=== PATIENT | male | born 1965 | race Caucasian/White ===

== ENCOUNTER 2018-07-02 14:57 | Emergency (ER) | payer OTHER ==
[~2018-07-02] VITALS: Ht 177.8 cm; Wt 113.4 kg
[2018-07-02 15:02] VITALS: BP 126/70
[2018-07-02] MEDS ORDERED: KETOROLAC 60 MG/2 ML INJ. IM ONE (15:30)
[2018-07-02] MEDS ORDERED: ORPHENADRINE CITRATE 60 MG/2 ML VIAL. IM ONE (15:30)
--- NOTE | 2018-07-02 16:14 | RAD ---
Examination: 3 views of the right shoulder and 2 views of the lumbar spine HISTORY: History of right shoulder pain after fall, low back pain COMPARISON: None available Findings: The humerus head is within the glenoid. There is no acute fracture or dislocation identified. Prior surgical changes of the rotator cuff The lumbar vertebral body heights are maintained. No evidence of listhesis. Mild degenerative changes identified in the lower thoracic spine. IMPRESSION: 1. No acute osseous findings. Electronically signed by: Homar Quezada MD (07/02/2018 4:10 PM) [place] [id number]
[2018-07-02] MEDS ORDERED: ORPH100T PO (16:51)
--- NOTE | 2018-07-02 16:52 | PHYS DOC ---
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 Pt denies any LOC, head injury, nausea, vomiting, neck pain, saddle anesthesia, or loss of bowel/bladder control. Pt states he was unloading the trailer when it began to move which threw his balance off and he jumped out the back of it. He denies any numbness, tingling, or weakness of his extremities. Review of Systems Review of Systems Constitutional: Denies fever or chills [] Eyes: Denies change in visual acuity, redness, or eye pain [] GI: Denies abdominal pain, nausea, vomiting, or saddle anesthesia Musculoskeletal: reports low back and R shoulder pain Integument: Denies rash or skin lesions [] Neurologic: Denies headache, focal weakness or sensory changes [] All other systems were reviewed and found to be within normal limits, except as documented in this note. Current Medications Current Medications Current Medications Medications (Trade) Dose Ordered Sig/[facility] Start Time Stop Time Status Last Admin Dose Admin Ketorolac Tromethamine (Toradol Im) 30 mg 1X ONCE 07/02/18 15:30 07/02/18 15:31 DC 07/02/18 15:43 30 MG Orphenadrine Citrate (Norflex) 60 mg 1X ONCE 07/02/18 15:30 07/02/18 15:31 DC 07/02/18 15:44 60 MG Allergies Allergies Allergies Coded Allergies Type Severity Reaction Last Updated Verified No Known Drug Allergies 07/02/18 No Physical Exam Physical Exam Constitutional: Well developed, well nourished, no acute distress, non-toxic appearance. [] HENT: Normocephalic, atraumatic, bilateral external ears normal, nose normal. [] Eyes: PERRLA, conjunctiva normal, no discharge. [] Neck: Normal range of motion, no tenderness, supple, no stridor. [] Lungs & Thorax: Bilateral breath sounds clear to auscultation [] Skin: Warm, dry, no erythema, no rash. [] Back: no bony tenderness, right supraspinatus lumbar muscular tenderness Extremities: No cyanosis, no clubbing, no edema, R lateral clavicle tenderness, R shoulder tenderness, limited ROM of L shoulder. ] Neurologic: Alert and oriented X 3, normal motor function, normal sensory function, no focal deficits noted. [] Psychologic: Affect normal, judgement normal, mood normal. [] Current Patient Data Vital Signs Vital Signs Date Time Temp Pulse Resp B/P (MAP) Pulse Ox O2 Delivery O2 Flow Rate FiO2 07/02/18 15:02 99.1 72 20 126/70 (88) 98 Room Air 99.1 EKG EKG [] Radiology/Procedures Radiology/Procedures PROCEDURE: LUMBAR SPINE 2-3V Examination: 3 views of the right shoulder and 2 views of the lumbar spine HISTORY: History of right shoulder pain after fall, low back pain COMPARISON: None available Findings: The humerus head is within the glenoid. There is no acute fracture or dislocation identified. Prior surgical changes of the rotator cuff The lumbar vertebral body heights are maintained. No evidence of listhesis. Mild degenerative changes identified in the lower thoracic spine. IMPRESSION: 1. No acute osseous findings. Course & Med Decision Making Course & Med Decision Making Pertinent Labs and Imaging studies reviewed. (See chart for details) Dx: low back pain, R shoulder pain, fall Xrays of R shoulder and lumbar spine are negative for any acute bony abnormalities. PT was given 60 mg norflex and 30 mg toradol in the ER, reports relief of pain after medications. Instructed pt to Apply ice to sore areas every 1-2 hours as needed for the next 48 hours, take Mobic as previously prescribed at home. Fill prescription for Norflex and take as directed. Follow up with your orthopedic Doctor or Dr. Tracy for further evaluation if symptoms persist. Return to the ER if symptoms worsen. Patient's and Patient verbalized an understanding of home care, medications, follow-up, and return to ED instructions and was in agreement with the plan of care. [] Dragon Disclaimer Dragon Disclaimer This electronic medical record was generated, in whole or in part, using a voice recognition dictation system. Departure Departure Impression: Primary Impression: Low back pain Additional Impressions: Right shoulder pain Fall Disposition: 01 HOME, SELF-CARE Condition: STABLE Referrals: SANDY BASSETT MD (PCP) ANGELIC TRACY II, MD Patient Instructions: Back Pain, Adult, [id number], Shoulder Pain, Easy-to- Read Additional Instructions: Take Mobic as previously prescribed at home. Fill prescription for Norflex and take as directed. Follow up with your orthopedic Doctor or Dr. Tracy for further evaluation if symptoms persist. Return to the ER if symptoms worsen. Scripts Orphenadrine Citrate (ORPHENADRINE CITRATE) 100 Mg Tablet.er 1 TAB PO BID for 10 Days, #20 TAB 0 Refills Prov: BRIGIDA PRIEST BRIDGE OPERATOR 07/02/18 Problem Qualifiers Primary Impression: Low back pain Chronicity: acute Back pain laterality: right Sciatica presence: without sciatica Qualified Codes: M54.5 - Low back pain Additional Impressions: Right shoulder pain Chronicity: acute Qualified Codes: M25.511 - Pain in right shoulder Fall Encounter type: initial encounter Qualified Codes: W19.XXXA - Unspecified fall, initial encounter BRIGIDA PRIEST BRIDGE OPERATOR Jul 02, 2018 16:52
== END 2018-07-02 16:59 | disposition home or self-care (01) ==
LOC: ER 14:57
DX: M54.5 Low back pain (principal); M25.511 Pain in right shoulder; G89.11 Acute pain due to trauma; I10 Essential (primary) hypertension; I25.10 Atherosclerotic heart disease of native coronary artery without angina pectoris; I25.2 Old myocardial infarction; F43.10 Post-traumatic stress disorder, unspecified; Z95.5 Presence of coronary angioplasty implant and graft; W17.89XA Other fall from one level to another, initial encounter; Y93.89 Activity, other specified; Y92.69 Other specified industrial and construction area as the place of occurrence of the external cause; Y99.0 Civilian activity done for income or pay
CPT/HCPCS: 72100; 73030; 96372; 99284; J1885; J2360

== ENCOUNTER → 2019-01-10 | Outpatient (CLI) | payer OTHER ==
[~2019-01-10] MED LIST: CONTRAST GIVEN. MC PRN; GADOBUTROL 7.5 MMOL/7.5 ML VIAL INT ART ONE; IOHEXOL 300 MG/ML 50 ML VIAL. INT ART ONE; LIDOCAINE 1% Multi-Dose 20 ML VIAL. ID ONE; ORPH100T PO
--- NOTE | 2019-01-10 13:45 | KCIC ---
MRI of the lumbar spine without contrast 01/10/2019 CLINICAL HISTORY: Low back pain which radiates down the left leg. TECHNIQUE: Unenhanced T1-weighted and T2-weighted sagittal and axial and inversion recovery sagittal images of the lumbar spine were obtained. FINDINGS: Comparison is made to radiographs of the lumbar spine dated 07/02/2018. Minimal S-shaped curvature of the thoracolumbar spine is seen. Degenerative signal changes are seen involving the L1-2, L2-3, L3-4 and L4-5 discs. Degenerative signal changes are seen within the marrow surrounding these discs. The conus medullaris is normal morphology, position, and signal characteristics. At the L1-2 disc space there is a mild generalized disc bulge. Superimposed on this disc bulge is a right paracentral focal disc protrusion. This measures 4 mm in AP diameter. Degenerative changes are seen involving the facet joints bilaterally. There is mild ligamentum flavum hypertrophy bilaterally. These findings when combined result in mild to moderate right greater than left central spinal canal stenosis. No neural foraminal stenosis is seen. At the L2-3 disc space there is a mild generalized disc bulge. Superimposed on this disc bulge is a left paracentral disc osteophyte complex. This measures 3 mm in AP diameter. Degenerative changes are seen involving the facet joints bilaterally. There is mild ligamentum flavum hypertrophy bilaterally. There are small facet joint effusions. These findings when combined result in mild left greater than right central spinal canal stenosis. No neural foraminal stenosis is seen. At the L3-4 disc space there is a mild generalized disc bulge. Degenerative changes are seen involving the facet joints bilaterally. There is mild ligamentum flavum hypertrophy bilaterally. These findings when combined do not result in significant central spinal canal stenosis. No neural foraminal stenosis is seen. At the L4-5 disc space there is a mild generalized disc bulge. This is eccentric to the right. Degenerative changes are seen involving the facet joints bilaterally. There is mild ligamentum flavum hypertrophy bilaterally. These findings do not result in significant central spinal canal or neural foraminal stenosis. At the L5-S1 disc space there is a minimal generalized disc bulge. Degenerative changes are seen involving the facet joints bilaterally. These findings when combined do not result in significant central spinal canal or neural foraminal stenosis. IMPRESSION: The changes of degenerative disc disease are seen throughout the lumbar spine. These findings result in mild to moderate right greater than left central spinal canal stenosis at L1-2 and mild left greater than right central spinal canal stenosis at L2-3. No neural foraminal stenosis is seen. Electronically signed by: Marquez Morillo MD (01/10/2019 1:42 PM) [facility]
--- NOTE | 2019-01-10 15:25 | KCIC ---
MRI arthrogram of the right shoulder HISTORY: Right shoulder pain with radiculitis. TECHNIQUE: Routine multiplanar sequences are obtained. FINDINGS: There is moderate motion degradation. There is also extensive metal artifact related to postsurgical anchor screw. The acromioclavicular joint is mildly degenerative. The supraspinatus and infraspinatus tendon footplate attachment is distorted by the artifact. No definite full-thickness rupture or retraction. No definite contrast in the subdeltoid bursa. Limited visualization of the subscapularis tendon without high-grade rupture. No significant muscle atrophy. No definite labral detachment. Articular cartilage appears intact. The proximal biceps tendon is obscured by the metal artifact. No evidence of acute fracture or aggressive bone destruction. No acute soft tissue abnormality. IMPRESSION: 1. Exam degraded by motion and metal artifact. 2. No evidence of a significant recurrent rotator cuff rupture. Electronically signed by: Edison Goodson MD (01/10/2019 3:21 PM) [facility]
--- NOTE | 2019-01-10 17:31 | KCIC ---
PROCEDURE: Right shoulder injection using fluoroscopic guidance, prior to MR. HISTORY: Shoulder pain. TECHNIQUE: The procedure was explained to the patient as were potential risks, including among others infection, bleeding or allergic reaction. All questions were answered. Informed written and verbal consent was obtained. The shoulder was prepped and draped in the usual sterile manner. Following administration of local anesthetic, a 22-gauge needle was advanced into the anterior shoulder. Following negative aspiration, 12 cc of a solution of 5cc Omnipaque-300 contrast, 5 cc 1% lidocaine, 10 cc normal saline, and 0.1 cc gadolinium was injected without difficulty. The needle was removed. There was good hemostasis at the injection site. The patient left in stable condition without immediate complication. 3 spot images are obtained. FLUOROSCOPY TIME:?54 seconds Electronically signed by: Edison Goodson MD (01/10/2019 5:28 PM) [facility]
== END | disposition home or self-care (01) ==
LOC: KCIC 10:05
PROVIDERS: ATTEND Physical Medicine & Rehabilitation Pain Medicine
DX: M19.011 Primary osteoarthritis, right shoulder (principal); M51.16 Intervertebral disc disorders with radiculopathy, lumbar region; M48.061 Spinal stenosis, lumbar region without neurogenic claudication; I10 Essential (primary) hypertension; Z95.5 Presence of coronary angioplasty implant and graft; Z87.891 Personal history of nicotine dependence; Z98.890 Other specified postprocedural states
CPT/HCPCS: 23350; 72148; 73040; 73222; A9585; Q9967

== ENCOUNTER 2021-08-06 09:32 | Day surgery (SDC) | payer BC ==
[~2021-08-06] VITALS: Ht 175.3 cm; Wt 97.0 kg
[~2021-08-06 09:32] MED LIST changes: +ASPI325T8 PO; +BENA40TA74 PO; +CARV25TA PO; -CONTRAST GIVEN. MC PRN; +FENO145T3 PO; +FLUO40CA2 PO; +FURO40TA4 PO; -GADOBUTROL 7.5 MMOL/7.5 ML VIAL INT ART ONE; +HYDROmorphone 2 MG/ML VIAL IVP PRN; -IOHEXOL 300 MG/ML 50 ML VIAL. INT ART ONE; +IV RINGERS,LACTATED 1000ML 1,000 ML IV SCH; -LIDOCAINE 1% Multi-Dose 20 ML VIAL. ID ONE; +LIPITOR80 MG PO; +MORPHINE SULFATE 2 MG/ML INJ. IVP PRN; +OMEP40CA7 PO; +POTA-121 PO; +PROCHLORPERAZINE 10 MG/2 ML VIAL. IVP PRN; +fentaNYL PF VIAL 100 MCG/2 ML VIAL IVP PRN
[2021-08-06 10:04] VITALS: BP 115/71
[2021-08-06] MEDS ORDERED: LIDOCAINE 1%/EPI 1:100,000 20 ML VIAL. ONE (10:06)
[2021-08-06] MEDS ORDERED: POVIDONE-IODINE 10% TOPICAL OINTMENT 28GM TUBE. TP ONE (10:06)
--- NOTE | 2021-08-06 10:06 | PDOC1 ---
History and Physical Date of Service: DOS: DATE: 08/06/21 TIME: 09:54 Chief Complaint: Chief Complain: painful corn on right foot History of Present Illness: HPI: 56 yo M with DM, HTN, DLD, tobacco use who comes in for biopsy of soft tissue lesion of the right 5th toe. Patient currently angela significant pain, fevers, N/V, chest pain, SOB, or palpitations. Past Medical/Surgical History: PMH/PSH: DM,HTN, DLD Allergies: Allergies: Coded Allergies: No Known Drug Allergies (Unverified , 08/01/21) Family History: Family History: Reviewed with no relevant history Social History: Social History: Denies alcohol or drugs. Everyday smoker Current Medications: Current Medications Current Medications Fentanyl Citrate (Fentanyl 2ml Vial) 25 mcg PRN Q5MIN PRN IVP MILD PAIN 1-3; Start 08/06/21 at 06:00; Stop 08/07/21 at 05:59 Fentanyl Citrate (Fentanyl 2ml Vial) 50 mcg PRN Q5MIN PRN IVP MODERATE PAIN 4- 6; Start 08/06/21 at 06:00; Stop 08/07/21 at 05:59 Morphine Sulfate (Morphine Sulfate) 1 mg PRN Q10MIN PRN IVP SEVERE PAIN 7-10; Start 08/06/21 at 06:00; Stop 08/07/21 at 05:59 Ringer's Solution 1,000 ml @ 30 mls/hr Q24H IV ; Start 08/06/21 at 06:00; Stop 08/06/21 at 17:59 Hydromorphone HCl (Dilaudid) 0.5 mg PRN Q10MIN PRN IVP SEVERE PAIN 7-10, 2nd CHOICE; Start 08/06/21 at 06:00; Stop 08/07/21 at 05:59 Prochlorperazine Edisylate (Compazine) 5 mg PACU PRN PRN IVP NAUSEA, MRX1; Start 08/06/21 at 06:00; Stop 08/07/21 at 05:59 Active Scripts Active Reported Klor-Con M20 (Potassium Chloride) 20 Meq Tab.er.prt 20 Meq PO DAILY Fenofibrate (Fenofibrate Nanocrystallized) 145 Mg Tablet 160 Mg PO DAILY Lipitor (Atorvastatin Calcium) 80 Mg Tablet 80 Mg PO DAILY Fluoxetine Hcl 40 Mg Capsule 80 Mg PO DAILY Furosemide 40 Mg Tablet 40 Mg PO DAILY Benazepril Hcl 40 Mg Tablet 40 Mg PO DAILY Coreg (Carvedilol) 25 Mg Tablet 25 Mg PO DAILY07 Aspirin 325 Mg Tablet 325 Mg PO DAILY Omeprazole 40 Mg Capsule.dr 40 Mg PO DAILY ROS: Review of Systems Review of System REVIEW OF SYSTEMS: GENERAL: Denies weakness SKIN: No bruising, hair changes or rashes. EYES: No blurred, double or loss of vision. NOSE AND THROAT: No history of nosebleeds, hoarseness or sore throat. HEART: No history of palpitations, chest pain or shortness of breath on exertion. LUNGS: Denies cough, hemoptysis, wheezing or shortness of breath. GASTROINTESTINAL: Denies changes in appetite, nausea, vomiting, diarrhea or constipation. GENITOURINARY: No history of frequency, urgency, hesitancy or nocturia. NEUROLOGIC: Denies history of numbness, tingling, or tremor. PSYCHIATRIC: No history of panic, anxiety or depression. ENDOCRINE: No history of heat or cold intolerance, polyuria or polydipsia. EXTREMITIES: Denies joint pain, pain on walking or stiffness. Physical Exam: Vital Signs: VSS Physcial Exam: GEN: No apparent distress. Alert and oriented HEENT: Normal cephalic, atraumatic, external auditory canals are patent EYES: Extraocular muscles are intact, pupil are equally round and reactive to light and accommodation MUSCULOSKELETAL: Well developed , well nourished, good range of motion ENDOCRINE: No thyromegaly was palpated LYMPHATICS: No cervical chain or axillary nodes were noted HEMATOPOIETIC: No bruising NECK: Supple, no JVD, no thyromegaly was noted LUNGS: Clear to auscultation in all lung espinal without rhonchi or wheezing HEART: RRR, S!, S2 present. Peripheral pulses intact, no obvious murmurs noted ABDOMEN: Soft, nontender. Positive bowel sounds, no organomegaly, normal bowel sounds EXTREMITIES: Without clubbing, cyanosis, or edema. Pedal pulses intact. Negative Homans sign NEUROLOGIC: Normal speech and tone. A&O x 3, moves all extremities, no obvious focal deficits PSYCHIATRIC: Normal affect, normal mood. Stable SKIN: No ulcerations or rashes, good skin turgor, no jaundice VASCULAR: Good capillary refill, neurovascular bundle appears to be intact Labs: Labs: Reviewed with no significant findings Images: Images Reviewed with no significant findings Assessment/Plan Assessment/Plan Soft tissue lesion of the right 5th toe. manager call to the OR for biopsy with Dr Zeny Romero score of < 0.2% Patient will be discharged after procedure to home Will defer weight bearing status and pain control to Podiatry All benefits and risks were discussed with the patient. Justifications for Admission Other Justification RADHA ZAVALA MD Aug 06, 2021 10:06
[2021-08-06] MEDS ORDERED: fentaNYL PF VIAL 100 MCG/2 ML VIAL ONE (11:19)
[2021-08-06] MEDS ORDERED: MIDAZOLAM HCL/PF 2 MG/2 ML VIAL. ONE (11:21)
[2021-08-06] MEDS ORDERED: PROPOFOL 10 MG/ML (20ML) VIAL. IV ONE (11:21)
[2021-08-06] MEDS ORDERED: DEXAMETHASONE SOD PHOS 4 MG/ML VIAL ONE (11:21)
[2021-08-06] MEDS ORDERED: LIDOCAINE 2% PF 5 ML VIAL. ONE ×2 (11:22→12:19)
[2021-08-06] MEDS ORDERED: FAMOTIDINE 20 MG/2 ML VIAL ONE (11:22)
[2021-08-06] MEDS ORDERED: ONDANSETRON PF 4 MG/2 ML VIAL. ONE (11:22)
--- NOTE | 2021-08-06 12:39 | PDOC4 ---
Operative Note Operative Note Surgeon: Criss Pre operative diagnosis: Benign skin lesion right 5th toe Post op diagnosis: Same Procedure: Excisional biopsy skin lesion 5th toe right Anesthesia: Local mac Hemostasis: none Ebl less than 1 Materials 4-0 nylon Intra operative findings: full thickness lesion at the dorsal base of the right 5th toe with no sinus tract Patient tolerated both anesthesia and procedure well. MOLLY JARAMILLO DPM Aug 06, 2021 12:39
[2021-08-06] MEDS ORDERED: LIDOCAINE 1%/EPI 1:100,000 20 ML VIAL. INJ ONE (12:47)
[2021-08-06 12:59] VITALS: BP 109/71
--- NOTE | 2021-08-06 15:31 | OP ---
DATE OF SURGERY: 08/06/2021 PREOPERATIVE DIAGNOSIS: Benign skin lesion of the right fifth toe. POSTOPERATIVE DIAGNOSIS: Benign skin lesion of the right fifth toe. PROCEDURE: Excisional biopsy of benign lesion to the right fifth toe. SURGEON: Mckenzie Kahn DPM. ANESTHESIA: MAC with local. INDICATIONS: The patient is a 56-year-old male who complains of a painful bleeding lesion to the base of the dorsal fifth toe for several months. He notes pain in shoe gear. Physical exam noted a raised skin colored lesion at the medial dorsal base of the fifth toe, measures 1 x 0.7 cm with dry hemorrhagic and serous crust noted. Due to the lesion, I recommended excisional biopsy for further evaluation. Discussed with the patient risks, benefits, complications to include delayed or nonhealing, need for further surgery, infection, blood clot to the leg, blood clot to the lung, chronic pain, swelling, damage to nerve or blood vessels. All questions were answered. The patient signed consent freely. No guarantees made. DESCRIPTION OF PROCEDURE: The patient was transported to the operating room via a cart, placed on the operating room table in supine position. Following verification of the patient, surgery of limb was performed. The right foot was prepped and draped in the usual aseptic manner. The patient was given 5 mL of local infiltrative block of 1% lidocaine with epinephrine. Incision was made 2 semielliptical incisions over the lesion. Note, the patient was still having pain. Thus, I gave a local fifth toe block with 2% lidocaine plain, achieved anesthesia and ellipsed the wound. Small vessels were cauterized. Note, there were no sinus tracts, no pustular drainage. Underneath soft tissue and adipose tissue was within normal limits. The wound was copiously irrigated with sterile saline and reapproximated with 4-0 nylon. The wound was dressed with Xeroform, 4 x 4's, Kerlix and Cam bandage. The patient tolerated both anesthesia and procedure well. Postop instructions are in the chart. GRETCHEN/SUNI DR: Luc TID: [id number]
--- NOTE | 2021-08-08 17:15 | PATHOLOGY ---
[facility] Accession Number: [id number] . 01 Material submitted: . toe - RIGHT 5TH TOE LESION. Modifiers: right, fifth . 02 Diagnosis: Segments (2) of skin, right fifth toe lesion excision: - Embedded foreign body with acute inflammation, with surrounding marked dermal fibrosis and chronic inflammation and overlying pseudoepitheliomatous epidermal hyperplasia. (JPM:sudeep; 08/08/2021) QMS 08/08/2021 1508 Local . 02 Comment: There is elongate polarizable foreign material embedded within the dermis with associated acute inflammation and surrounding marked dermal fibrosis and chronic inflammation. There is no evidence of malignancy. (JPM:sudeep; 08/08/2021) . 02 Electronically signed: . Satnam Sky MD, Pathologist NPI- [id number] . 01 Gross description: . Received in formalin labeled "Nolberto Merchant, right fifth toe lesion" is an unoriented ellipse of skin measuring 1.5 x 0.9 x 0.7 cm. The skin surface displays a poorly defined, irregular, and pale roe to dark roe-yellow lesion measuring 0.9 x 0.7 x 0.5 cm. The margin is inked and the specimen is sectioned into 7 pieces. The specimen is submitted entirely in A1 to A3, with the tips in the last cassette. . Also received within the specimen container is a shave biopsy measuring 0.4 x 0.3 x 0.1 cm in greatest dimensions. The epidermal surface is pale roe, irregular, and grossly unremarkable. The surgical margin is inked. The specimen is intact and placed in cassette A4.([facility]; 08/07/2021) [facility] 08/07/2021 1139 Local . 02 Pathologist provided ICD-10: L08.9, L90.5 . 02 CPT . 919729 Specimen Comment: A courtesy copy of this report has been sent to [phone] Specimen Comment: Report sent to Specimen Comment: A duplicate report has been generated due to demographic updates. Performed at: 01 [facility] [address] [facility] [address], [place] [id number] MD Rolo Ordoñez MD Phone: [phone] Performed at: 02 [facility] [address] [place], [place] [id number] MD Satnam Sky MD Phone: [phone]
== END 2021-08-06 13:21 | disposition home or self-care (01) ==
LOC: SURG 09:32
PROVIDERS: ATTEND Podiatrist Foot & Ankle Surgery
DX: L90.5 Scar conditions and fibrosis of skin (principal); L08.9 Local infection of the skin and subcutaneous tissue, unspecified; I25.10 Atherosclerotic heart disease of native coronary artery without angina pectoris; I10 Essential (primary) hypertension; E78.00 Pure hypercholesterolemia, unspecified; K21.9 Gastro-esophageal reflux disease without esophagitis; M19.90 Unspecified osteoarthritis, unspecified site; F41.9 Anxiety disorder, unspecified; F32.9 Major depressive disorder, single episode, unspecified; Z87.891 Personal history of nicotine dependence; Z90.49 Acquired absence of other specified parts of digestive tract; Z98.890 Other specified postprocedural states; Z79.82 Long term (current) use of aspirin; Z79.899 Other long term (current) drug therapy
CPT/HCPCS: 11421; 88305; A4930; A6223; A6402; J1100; J2250; J2405; J2704; J3010; J3490; A4657; A6443

== ENCOUNTER 2022-01-07 10:46 | Day surgery (SDC) | payer BC ==
[~2022-01-07] VITALS: Ht 175.3 cm; Wt 97.7 kg
[~2022-01-07 10:46] MED LIST changes: +HYDROmorphone 2 MG/ML INJ. IVP PRN; -HYDROmorphone 2 MG/ML VIAL IVP PRN; -PROCHLORPERAZINE 10 MG/2 ML VIAL. IVP PRN
[2022-01-07] MEDS ORDERED: BUPIVACAINE MPF 0.5% 30 ML VIAL. ONE (10:48)
[2022-01-07] MEDS ORDERED: LIDOCAINE 1% Multi-Dose 20 ML VIAL. ONE (10:48)
[2022-01-07 11:06] VITALS: BP 114/59
[2022-01-07 11:14] LABS: BASO # 0.1 x10^3/uL (0.0-0.2); BASO % 1 % (0-3); EOS # 0.1 x10^3/uL (0.0-0.7); EOS % 1 % (0-3); HEMOGLOBIN 14.3 g/dL (13.0-17.5); LYMPH # 2.1 x10^3/uL (1.0-4.8); LYMPH % 33 % (24-48); MEAN CORPUSCULAR HEMOGLOBIN 30 pg (25-35); MEAN CORPUSCULAR HGB CONC 34 g/dL (31-37); MEAN CORPUSCULAR VOLUME 89 fL (79-100); MONO # 0.4 x10^3/uL (0.0-1.1); MONO % 6 % (0-9); NEUT # 3.7 x10^3/uL (1.8-7.7); NEUT % 59 % (31-73); PLATELET COUNT 263 x10^3/uL (140-400); RED BLOOD COUNT 4.75 x10^6/uL (4.30-5.70); RED CELL DISTRIBUTION WIDTH 12.9 % (11.5-14.5); WHITE BLOOD COUNT 6.3 x10^3/uL (4.0-11.0)
[2022-01-07 11:22] LABS: CALCIUM 9.2 mg/dL (8.5-10.1); CREATININE 1.3 mg/dL (0.7-1.3); GFR 57.5; POTASSIUM 3.9 mmol/L (3.5-5.1)
[2022-01-07] MEDS ORDERED: DEXAMETHASONE SOD PHOS 4 MG/ML VIAL ONE (11:24)
[2022-01-07] MEDS ORDERED: LIDOCAINE 2% PF 5 ML VIAL. ONE (11:24)
[2022-01-07] MEDS ORDERED: ONDANSETRON PF 4 MG/2 ML VIAL. ONE (11:24)
[2022-01-07] MEDS ORDERED: SEVOFLURANE 61 TO 120 MINUTES. IH ONE (11:24)
[2022-01-07] MEDS ORDERED: PROPOFOL 10 MG/ML (20ML) VIAL. IV ONE (11:24)
[2022-01-07] MEDS ORDERED: fentaNYL PF VIAL 100 MCG/2 ML VIAL ONE (11:24)
[2022-01-07 11:28] LABS: ALBUMIN 3.6 g/dL (3.4-5.0); ALBUMIN/GLOBULIN RATIO 1.2 (1.0-1.7); TOTAL BILIRUBIN 0.5 mg/dL (0.2-1.0); TOTAL PROTEIN 6.6 g/dL (6.4-8.2)
--- NOTE | 2022-01-07 11:38 | SSS ---
DATE OF SERVICE: 01/07/2022 ADMIT DATE: 01/07/2022 SHORT STAY SUMMARY CHIEF COMPLAINT: Right fifth toe mass. HISTORY OF PRESENT ILLNESS: The patient is a pleasant 56-year-old male who presents today for elective surgery. He has a mass on the dorsal aspect of his proximal right fifth toe. We have been requested for preoperative medical evaluation and treatment of comorbidities and clearance for surgery. PAST MEDICAL HISTORY: PTSD, myocardial infarction, hyperlipidemia, diabetes that is diet controlled, history of hypertension, GERD. ALLERGIES: None. FAMILY HISTORY: Diabetes. SOCIAL HISTORY: Does not drink, smoke or take drugs. He is for the past 15 years (he has been for the past 8 years and been with his for the past 15 years. He is semi-retired. He worked in [employer] in [place]. 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 MEDICATIONS: Reviewed, please refer to the MRAD. He is on aspirin, atorvastatin, Coreg, fibric acid, fluoxetine, Lasix, Prilosec and potassium. REVIEW OF SYSTEMS: GENERAL: No history of weight change, weakness or fevers. SKIN: No bruising, hair changes or rashes. EYES: No blurred, double or loss of vision. NOSE AND THROAT: No history of nosebleeds, hoarseness or sore throat. HEART: No history of palpitations, chest pain or shortness of breath on exertion. LUNGS: Denies cough, hemoptysis, wheezing or shortness of breath. GASTROINTESTINAL: Denies changes in appetite, nausea, vomiting, diarrhea or constipation. GENITOURINARY: No history of frequency, urgency, hesitancy or nocturia. NEUROLOGIC: Denies history of numbness, tingling, tremor or weakness. PSYCHIATRIC: No history of panic, anxiety or depression. ENDOCRINE: No history of heat or cold intolerance, polyuria or polydipsia. EXTREMITIES: Denies muscle weakness, joint pain, pain on walking or stiffness. PHYSICAL EXAMINATION: VITALS: Within normal limits and are stable. GENERAL: No apparent distress. Alert and oriented. HEENT: normocephalic atraumatic, external auditory canals are patent. EYES: Extraocular muscles are intact, pupils are equally round and reactive to light and accommodation. MUSCULOSKELETAL: Well developed, well nourished, good range of motion. ENDOCRINE: No thyromegaly was palpated. LYMPHATICS: No cervical chain or axillary nodes were noted. HEMATOPOIETIC: No bruising. NECK: Supple, no JVD, no thyromegaly was noted. LUNGS: Clear to auscultation in all lung espinal without rhonchi or wheezing. HEART: RRR, S1, S2 present. Peripheral pulses intact, no obvious murmurs were noted. ABDOMEN: Soft, nontender. Positive bowel sounds no organomegaly, normal bowel sounds. EXTREMITIES: He has a small mass on the proximal aspect of the right fifth toe dorsally. NEUROLOGIC: Normal speech, normal tone. A and O x 3, moves all extremities, no obvious focal deficits. PSYCHIATRIC: Normal affect, normal mood. Stable. SKIN: No ulcerations or rashes, good skin turgor, no jaundice. VASCULAR: Good capillary refill, neurovascular bundle appears to be intact. ASSESSMENT AND PLAN: Right fifth toe mass in a middle-aged male who seems to be clinically stable for surgery. He seems to be at low risk for intraoperative or postoperative complications. After surgery, he will need wound care, p.r.n. pain meds. Continue his home medications and if he needs to be admitted or needs close followup, please do not hesitate to contact me. Thank you very much for allowing us to participate in the care of this nice gentleman. [facility] [place]: SHANNON/leona TID: [id number]
[2022-01-07] MEDS ORDERED: ePHEDrine PF IN SALINE 50 MG/10 ML SYRINGE. IV ONE (11:59)
[2022-01-07] MEDS ORDERED: PHENYLEPHRINE in 0.9% NACL PF 1 MG/10 ML SYRINGE. IV ONE (11:59)
[2022-01-07] MEDS ORDERED: GLYCOPYRROLATE 1 MG/5 ML VIAL. ONE (12:07)
[2022-01-07] MEDS ORDERED: methylPREDNISolone ACETATE 80 MG/ML VIAL. ONE (12:18)
[2022-01-07] MEDS ORDERED: POVIDONE-IODINE 10% TOPICAL OINTMENT 28GM TUBE. TP ONE (12:23)
--- NOTE | 2022-01-07 12:46 | PDOC4 ---
OPERATIVE NOTE: Surgeon: Criss Senior Portfolio Analyst: Nolvia Mitchell Pre op diagnosis: Soft tissue mass right foot Post op diagnosis: scar tissue right foot Anesthesia: LMA with local Hemostasis: Right ankle tourniquet at 250mmHg x 23 minutes EBL: 0mL Materials: 3-0 vicryl, 4-0 nylon Pathology: Soft tissue and full thickness skin right foot Intraoperative findings: Note scarring at soft tissue mass from previous surgical exicision of benign foreign body reaction with no well defined ganglion or tumor noted. Note some adipose tissue excised and tendon sheath fragments excised and sent to pathology along with full thickness cicatrix Patient tolerated both procedure and anesthesia well. He was transferred to the PACU with VSS and VSI to right foot MOLLY JARAMILLO DPM Jan 07, 2022 12:46
[2022-01-07] MEDS ORDERED: HYDR-2761 PO (12:57)
--- NOTE | 2022-01-07 13:46 | OP ---
DATE OF SURGERY: 01/07/2022 PREOPERATIVE DIAGNOSIS: Soft tissue mass to the right foot. POSTOPERATIVE DIAGNOSIS: Soft tissue mass with residual scar tissue (cicatrix), right foot. SURGEON: Mckenzie Kahn DPM ANESTHESIOLOGIST: Nolvia Mitchell. ANESTHESIA: LMA with local. HEMOSTASIS: Right ankle tourniquet at 250 mmHg x23 minutes. INDICATIONS: The patient is a 56-year-old male who underwent previous excision of a benign soft tissue lesion and had healed after a superficial wound dehiscence. He was seen in the office, complaining of drainage, pustular drainage and pain to the area with a raised palpable mobile soft tissue mass. MRI was performed. The patient was started on oral antibiotics, Bactrim and MRI showed a ganglion cyst, likely at the site. Due to the pain, recommended surgical excision. Discussed with patient possible risks including complications to include delayed or nonhealing, need for further surgery, loss of toe, infection, recurrence, numbness, tingling to the toe, damage to nerve or blood vessel, blood clot to the leg, blood clot to the lung, chronic pain, painful scarring, swelling. All questions were answered. No guarantees were made. The patient signed consent freely and put in chart. DESCRIPTION OF PROCEDURE: The patient was transported to the operating room via a cart and placed on the operating table in supine position. Following verification of the surgery, the patient's limb was performed. A well-padded tourniquet was placed over the right ankle and a local fifth ray block was given to the right foot consisting of 1:1 mixture of 1% lidocaine plain and 0.5% Marcaine plain. The patient was then prepped and draped in the usual aseptic manner. Esmarch bandage was used to exsanguinate the right foot and the right ankle tourniquet was inflated to 250 mmHg. Attention was directed to the right fifth metatarsophalangeal joint, where a 3 cm incision was made over the palpable soft tissue mass. It was noted thickening of the skin, significant for scarring at the previous incision surgical site. There was a residual tendon sheath, joint capsule as well as adipose tissue, which was excised for biopsy. There was no fluid-filled sac noted at this time. The soft tissue mass palpable was most likely due to irritation from his shoe gear and activity level with a previous dehiscence after surgery, ellipsed out the hardened skin for biopsy at this time, a wound culture was taken, aerobic and anaerobic and the soft tissue excised was also sent to pathology. The wound was then copiously irrigated with sterile saline and reapproximated with 3-0 Vicryl and 4-0 nylon. Then, a postop injection was given with 40 mg of Decadron and the wound was dressed with Betadine ointment, Adaptic gauze, 4 x 4s, Kerlix bandage and Cam bandage. The tourniquet was deflated after 23 minutes and good perfusion was noted to all digits of the right foot. Postoperative instructions are in the chart. CARMELA DR: Luc TID: [id number]
[2022-01-07] MEDS ORDERED: HYDROcodone/APAP 5/325MG 1 TAB TABLET PO ONE (14:00)
[2022-01-07] MEDS ORDERED: PROCHLORPERAZINE 10 MG/2 ML VIAL. ONE (14:05)
[2022-01-07] MEDS: PROCHLORPERAZINE 10 MG/2 ML VIAL. IVP PRN ×2 (14:09→14:20)
[2022-01-07 14:40] VITALS: BP 120/78
--- NOTE | 2022-01-09 18:16 | PATHOLOGY ---
[facility] Accession Number: [id number] . 01 Material submitted: . foot - RIGHT FOOT. Modifiers: right . 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 (JPM:norman; 01/09/2022) [facility]BR 01/09/2022 1741 Local . 02 Comment: There is no evidence of malignancy. (JPM:norman; 01/09/2022) . 02 Electronically signed: . Satnam Sky MD, Pathologist NPI- [id number] . 01 Gross description: . The specimen is received in formalin, labeled "Nolberto Merchant, soft tissue mass right foot". Received are multiple segments of pale roe skin admixed with segments of pale roe soft tissue measuring 2.1 x 1.6 x 0.2 cm in aggregate dimensions. The specimen is filtered and submitted entirely in cassette A1.([facility]; 01/08/2022) [facility] 01/08/2022 1030 Local . 02 Pathologist provided ICD-10: L08.9, L85.8 . 02 CPT . 821037 Specimen Comment: A courtesy copy of this report has been sent to [phone], [phone] Specimen Comment: [id number] Specimen Comment: Report sent to / DR BASSETT Specimen Comment: A duplicate report has been generated due to demographic updates. Performed at: 01 [facility] [address], [place], [place] [id number] MD Rolo Ordoñez MD Phone: [phone] Performed at: 02 [facility] [address], [place] [id number] MD Satnam Sky MD Phone: [phone]
== END 2022-01-07 14:49 | disposition home or self-care (01) ==
LOC: SURG 10:46
PROVIDERS: ATTEND Podiatrist Foot & Ankle Surgery
DX: L08.9 Local infection of the skin and subcutaneous tissue, unspecified (principal); L85.8 Other specified epidermal thickening; I25.10 Atherosclerotic heart disease of native coronary artery without angina pectoris; I10 Essential (primary) hypertension; E78.00 Pure hypercholesterolemia, unspecified; K21.9 Gastro-esophageal reflux disease without esophagitis; M19.90 Unspecified osteoarthritis, unspecified site; F41.9 Anxiety disorder, unspecified; F32.9 Major depressive disorder, single episode, unspecified; E11.9 Type 2 diabetes mellitus without complications; Z87.891 Personal history of nicotine dependence; Z79.82 Long term (current) use of aspirin; Z79.899 Other long term (current) drug therapy; Z90.49 Acquired absence of other specified parts of digestive tract; Z98.890 Other specified postprocedural states
CPT/HCPCS: 28039; 36415; 80053; 85025; 87075; 87077; 87186; A4215; A4364; A4930; A6402; A6449; J0690; J0780; J1040; J1100; J2370; J2405; J2704; J3010; J3490; A4657; A6443